=== PATIENT | female | born 1955 | race Caucasian/White ===

== ENCOUNTER → 2021-10-09 11:16 | Outpatient (BNVA) | payer MEDICARE, SELFPAY | PROVIDERS: Visit Provider Family Medicine Adult Medicine | DX: R39.9 Unspecified symptoms and signs involving the genitourinary system (principal) | CPT/HCPCS: 81000 ==

== ENCOUNTER 2022-09-20 08:31 | Outpatient (CLI) | payer MEDICARE, SELFPAY ==
--- NOTE | 2022-09-20 09:16 | CT_ITS ---
WS: [id number] CT ABDOMEN AND PELVIS NONCONTRAST HISTORY: UNSPECIFIED ABDOMINAL PAIN TECHNIQUE: Imaging performed through the abdomen and pelvis. Coronal and sagittal reformats are submi tted. All CT scans at [facility] use at least one of these dose optimization techniques: auto mated exposure control; mA and/or kV adjustment per patient size (includes targeted exams where dose is matched to clinical indication); or iterative reconstruction. DLP: 415.18 mGy.cm COMPARISON: None available. Lower thorax: Lung bases are clear. Visualized heart is normal. Small hiatal hernia. Liver: Normal size liver. No mass or bile duct dilatation. Gallbladder: Normal gallbladder. No pericholecystic fluid or cholelithiasis. No gallbladder wall thic [place]. Pancreas: Normal size and attenuation. Normal pancreatic duct. No pancreatitis or mass. Spleen: Normal. Adrenal glands: Normal. No mass. Right kidney: Normal size kidney. Hyperattenuating mass 18 x 17 mm in the medial RIGHT kidney. No hyd ronephrosis. Left kidney: Nonobstructing 3 mm calcification mid kidney. No hydronephrosis. Aorta: Mild atherosclerosis abdominal aorta with no aneurysm. No free fluid, intraperitoneal air or significant lymphadenopathy. GI tract: Well-distended stomach and small bowel. Numerous scattered diverticula throughout the colon without acute diverticulitis. Most significant burden through the sigmoid colon. Extensive diverticu litis with no acute inflammation. Negative appendix. Abdominal wall: Negative. No hernia. Pelvis: Prior hysterectomy. No free fluid or adenopathy. Minimally distended urinary bladder. Osseous structures: Advanced degenerative disc disease at L2-3. CT/CT abdomen pelvis wo con [id number] IMPRESSION: 1. Extensive diverticulosis throughout the colon but greatest burden towards t he sigmoid. Associated chronic submucosal wall thickening. No evidence for acut e diverticulitis. 2. Normal appendix. 3. High density mass medial RIGHT kidney measures 18 x 17 mm and needs to be f urther evaluated to exclude neoplasm. May be a cyst with increased protein cont ent. Recommend MRI renal protocol with and without contrast.
== END 2022-09-20 08:32 | disposition home or self-care (01) ==
PROVIDERS: PCP Family Medicine; Visit Provider Nurse Practitioner Family
DX: R10.9 Unspecified abdominal pain (principal); R19.5 Other fecal abnormalities; R50.9 Fever, unspecified; R11.0 Nausea; K57.30 Diverticulosis of large intestine without perforation or abscess without bleeding; N28.89 Other specified disorders of kidney and ureter
CPT/HCPCS: 74176

== ENCOUNTER 2022-10-14 06:57 | Outpatient (CLI) | payer MEDICARE, SELFPAY ==
--- NOTE | 2022-10-14 07:21 | MR_ITS ---
WS: [id number] MRI/MRCP OF THE ABDOMEN WITHOUT GADOLINIUM ENHANCEMENT TECHNIQUE: Coronal T2 Fase BH, Axial T2 Fase BH, Axial T2 FS BH, Zxial 3D Christine BH, Axial DWI BH, 2D MRCP Radial BH, 3D MRCP (Resp), and Axial 3D Dyn BH Post sequences. CLINICAL INFORMATION: RENAL MASS/ABDOMINAL PAIN COMPARISON: CT abdomen pelvis September 20, 2022 FINDINGS: Previously described increased density lesion RIGHT kidney seen on the CT demonstrates decreased T2 s ignal and increased T1 signal most likely due to proteinaceous or hemorrhagic contents. Gadolinium no t administered therefore enhancement cannot be assessed. Recommend further evaluation with ultrasound for confirmation of cystic contents. Adrenal glands are normal. Tiny esophageal hiatal hernia. No intrahepatic biliary ductal dilatation. Fatty atrophy of the pancreas. No hydronephrosis in either kidney. Normal caliber abdominal aorta. Ga llbladder appears normal. Normal visualized common bile duct. MR/MR MRCP [id number] Impression: 1. RIGHT kidney lesion demonstrates increased T1 signal most likely due to pro teinaceous or hemorrhagic contents. This demonstrates decreased signal on the T 2 imaging therefore cystic contents not confirmed and solid lesion not entirely excluded. Gadolinium not administered. Recommend ultrasound to confirm cystic contents versus patient could return for Gadolinium contrast 2. Normal gallbladder. 3. No intrahepatic biliary dilatation. Normal common bile duct.
== END 2022-10-14 06:58 | disposition home or self-care (01) ==
PROVIDERS: PCP Family Medicine; Visit Provider Nurse Practitioner Family
DX: N28.89 Other specified disorders of kidney and ureter (principal); R10.9 Unspecified abdominal pain
CPT/HCPCS: 74181